=== PATIENT | male | born 1990 | race Caucasian/White ===

== ENCOUNTER → 2016-08-01 | Outpatient (CLI) | payer OTHER ==
[~2016-08-01] MED LIST: ATARAX25 MG PO; DAYPRO600 M1 PO; MOTRIN800 MG PO; PREDNISONE20 MG PO
== END | disposition home or self-care (01) ==
LOC: RAD 12:24
DX: R06.02 Shortness of breath (principal); R06.2 Wheezing; R05 Cough

== ENCOUNTER 2024-06-23 17:52 | Emergency (ER) | payer OTHER ==
[~2024-06-23] VITALS: Ht 177.8 cm; Wt 81.6 kg
[2024-06-23 18:50] VITALS: BP 152/85
== END 2024-06-23 20:01 | disposition left against medical advice (07) ==
LOC: ED 17:52
DX: M79.642 Pain in left hand (principal); Z53.21 Procedure and treatment not carried out due to patient leaving prior to being seen by health care provider; W00.0XXA Fall on same level due to ice and snow, initial encounter; Y93.89 Activity, other specified; Y92.89 Other specified places as the place of occurrence of the external cause; Y99.8 Other external cause status